=== PATIENT | female | born 1975 | race Two or more races ===

== ENCOUNTER → 2019-04-22 | Emergency (ER) | payer MEDICAID, OTHER ==
[~2019-04-22] VITALS: Ht 165.1 cm; Wt 103.9 kg
[2019-04-22 09:44] VITALS: BP 147/71
== END | disposition home or self-care (01) ==
LOC: ER 09:34
DX: M16.12 Unilateral primary osteoarthritis, left hip (principal); M43.17 Spondylolisthesis, lumbosacral region; I10 Essential (primary) hypertension
CPT/HCPCS: 72100; 73502

== ENCOUNTER 2020-01-09 17:28 | Emergency (ER) | payer MEDICAID | END 2020-01-09 19:50 | disposition left against medical advice (07) | LOC: ER 17:28 | DX: J02.9 Acute pharyngitis, unspecified (principal); Z53.21 Procedure and treatment not carried out due to patient leaving prior to being seen by health care provider ==

== ENCOUNTER 2022-04-13 21:26 | Emergency (ER) | payer MEDICAID ==
[~2022-04-13] VITALS: Ht 165.1 cm; Wt 113.6 kg
[2022-04-13 23:36] VITALS: BP 152/92
[2022-04-14] MEDS ORDERED: HYDROcodone-ACET 5/325MG TAB PO ONE (00:15)
[2022-04-14] MEDS ORDERED: ONDANSETRON ODT 4 MG TAB PO ONE (00:15)
== END 2022-04-14 00:55 | disposition home or self-care (01) ==
LOC: EDBD 21:26 → ER 21:26
DX: M79.10 Myalgia, unspecified site (principal); M25.512 Pain in left shoulder; R51.9 Headache, unspecified; I10 Essential (primary) hypertension; E11.9 Type 2 diabetes mellitus without complications; Z90.710 Acquired absence of both cervix and uterus; V43.62XA Car passenger injured in collision with other type car in traffic accident, initial encounter; Y93.89 Activity, other specified; Y92.410 Unspecified street and highway as the place of occurrence of the external cause; Y99.8 Other external cause status
CPT/HCPCS: 70450; 71250; 72125; 73020; 74176; 99284; Q0162

== ENCOUNTER 2023-09-06 20:59 | Inpatient (IN) | payer MEDICAID, OTHER ==
[~2023-09-06] VITALS: Ht 165.1 cm; Wt 115.5 kg
[~2023-09-06 20:59] MED LIST: DICY10CA PO; ZOFR4T PO
[2023-09-06 21:44] LABS: Urine Bacteria None Seen /hpf (None Seen)
[2023-09-06 21:56] LABS: Urine Blood Negative /uL (Negative); Urine Clarity Clear (Clear); Urine Color Colorless (Yellow); Urine Protein, UAD Negative (Negative); Urine Specific Gravity 1.009 (1.001-1.035); Urine Urobilinogen Normal (Negative); Urine WBC 1 /hpf (0 - 5); Urine pH 5.5 (5.0-9.0)
[2023-09-06 21:58] LABS: Alanine Aminotransferase 20 U/L (7-40); Albumin 4.5 g/dL (3.2-4.8); Alkaline Phosphatase 85 U/L (46-116); Anion Gap 6 (5-15); Aspartate Aminotransferase < 8 U/L (13-40); BUN/Creatinine Ratio 9.4 (10.0-20.0); Bilirubin, Total 0.4 mg/dL (0.2-1.0); Blood Urea Nitrogen 6 mg/dL (9-23); Calcium 9.8 mg/dL (8.7-10.4); Carbon Dioxide 28 mmol/L (20-30); Chloride 105 mmol/L (98-107); Glucose 118 mg/dL (74-106); Potassium 4.2 mmol/L (3.5-5.1); Sodium 139 mmol/L (136-145); Total Protein 7.3 g/dL (5.7-8.2)
[2023-09-06] MEDS: SODIUM CHLORIDE 0.9% 1,000 ML IV ONE (22:03)
[2023-09-06] MEDS: ONDANSETRON HCL 4 MG/2 ML VIAL IV ONE (22:17)
[2023-09-06] MEDS: FAMOTIDINE (10MG/ML) 2ML VL IV ONE (22:17)
[2023-09-07] MEDS ORDERED: DOCUSATE SOD 100 MG CAP PO PRN (04:45)
[2023-09-07] MEDS ORDERED: DEXTROSE (50%) 50ML SYRG IV PRN (04:45)
[2023-09-07] MEDS ORDERED: ONDANSETRON HCL 4 MG/2 ML VIAL IV PRN (04:45)
[2023-09-07] MEDS ORDERED: ACETAMINOPHEN 325 MG TAB PO PRN (04:45)
[2023-09-07] MEDS ORDERED: NITROGLYCERIN 0.4 MG SL TAB SL PRN (04:45)
[2023-09-07] MEDS ORDERED: MORPHINE SULFATE INJ 2 MG/ml SYRG IV PRN (04:45)
[2023-09-07 06:00] VITALS: PULSE 58; RESP 14; O2SAT 95
[2023-09-07] MEDS: CAPTOPRIL 12.5 MG TAB PO SCH (06:00)
[2023-09-07] MEDS: InsuLIN REG 1unit/0.01ml Soln (100units/ml) SC SCH (08:00)
[2023-09-07] MEDS: ACCU-CHEK COMFORT CURVE STRIP VI SCH (08:27)
[2023-09-07 08:45] VITALS: BP 132/74; PULSE 58; RESP 17; RESP 18; TEMP 98.4; O2SAT 58; O2SAT 94
[2023-09-07 08:55] VITALS: BP_SYST 132; BP_SYST 150; BP_DIAS 74; BP_DIAS 78; PULSE 58; PULSE 70; RESP 16; RESP 18; TEMP 98.1; TEMP 98.4; O2SAT 94; O2SAT 98
[2023-09-07] MEDS ORDERED: ENOXAPARIN SOD 40 MG/0.4 ML SYRINGE SC SCH (10:00)
[2023-09-07] MEDS ORDERED: LISINOPRIL 5 MG TAB PO SCH (10:00)
[2023-09-07 11:47] VITALS: BP 132/71; PULSE 69; RESP 16; TEMP 98.7; O2SAT 96
[2023-09-07] MEDS: PANTOPRAZOLE 40 MG TAB PO ONE (13:47)
[2023-09-07] MEDS ORDERED: METF500S3 PO (14:16)
[2023-09-07] MEDS ORDERED: CAPT25TA5 PO (14:17)
[2023-09-07 14:52] LABS: Basophils # (auto) 0 10 ^3/uL (0-0.2); Basophils % (auto) 0.5 % (0.0-2.0); Eosinophils # (auto) 0.3 10 ^3/uL (0-0.8); Eosinophils % (auto) 2.7 % (0.0-7.0); Hematocrit 37.9 % (36.0-46.0); Hemoglobin 12.5 g/dL (12.2-16.2); Lymphocytes # (auto) 2.4 10 ^3/uL (0.4-5.4); Lymphocytes % (auto) 24.2 % (10.0-50.0); Mean Corpuscular Hemoglobin 27.6 pg (28.0-32.0); Mean Corpuscular Hgb Conc. 32.9 g/dL (32.0-36.0); Mean Corpuscular Volume 83.8 fL (80.0-100.0); Monocytes # (auto) 0.6 10 ^3/uL (0-1.3); Monocytes % (auto) 6.3 % (0.0-12.0); Neutrophils # (auto) 6.5 10 ^3/uL (1.6-8.6); Neutrophils % (auto) 66.3 % (37.0-80.0); Red Blood Cells 4.52 10^6/uL (4.0-5.20); Red Cell Distribution Width 14.4 % (11.8-14.3); White Blood Cell 9.8 10^3/uL (4.4-10.8)
[2023-09-07 15:06] LABS: Chloride 107 mmol/L (98-107); Potassium 3.8 mmol/L (3.5-5.1); Sodium 141 mmol/L (136-145)
[2023-09-07 15:07] LABS: Anion Gap 5 (5-15); Calcium 9.1 mg/dL (8.7-10.4); Carbon Dioxide 29 mmol/L (20-30)
[2023-09-07 15:12] LABS: BUN/Creatinine Ratio 16.4 (10.0-20.0); Blood Urea Nitrogen 11 mg/dL (9-23); Glucose 145 mg/dL (74-106); Triglycerides 339 mg/dL (< 150)
[2023-09-07 15:13] LABS: LDL Cholesterol 58 mg/dL (< 100)
[2023-09-07 15:14] LABS: Cholesterol 139 mg/dL (< 200); HDL Cholesterol 36 mg/dL (40-59)
[2023-09-07] MEDS ORDERED: SERT50TA PO (15:29)
[2023-09-07 20:00] VITALS: PULSE 69
[2023-09-07 21:00] VITALS: BP 145/70; PULSE 79; RESP 18; TEMP 98.3; O2SAT 94
[2023-09-08] MEDS ORDERED: PANTOPRAZOLE 40 MG TAB PO SCH (06:00)
== END 2023-09-07 21:18 | disposition home or self-care (01) | DRG 243 ==
LOC: ER 20:59 → OVERFLOW 09-07 04:46 → TELE-WESTW 09-07 08:34
PROVIDERS: ADMIT Internal Medicine; ATTEND Emergency Medicine
DX: K21.9 Gastro-esophageal reflux disease without esophagitis (principal); E11.65 Type 2 diabetes mellitus with hyperglycemia; M94.0 Chondrocostal junction syndrome [Tietze]; I10 Essential (primary) hypertension; E66.01 Morbid (severe) obesity due to excess calories; F32.9 Major depressive disorder, single episode, unspecified; F41.9 Anxiety disorder, unspecified; Z79.899 Other long term (current) drug therapy; Z68.41 Body mass index [BMI] 40.0-44.9, adult; Z90.710 Acquired absence of both cervix and uterus
CPT/HCPCS: 36415; 71046; 80048; 80053; 80061; 81001; 82962; 83036; 83880; 84484; 85025; 93005; 96361; 96374; 96375; G0378; J2405; J3490